=== PATIENT | male | born 1970 | race Caucasian/White ===

== ENCOUNTER → 2020-08-01 | Outpatient (CLI) | payer BC, OTHER | LOC: HEART 5 07-24 14:00 → ECHO 07-26 11:00 → NM 07-26 13:00 → ECHO 08:39 | DX: R07.9 Chest pain, unspecified (principal); I10 Essential (primary) hypertension; R00.2 Palpitations; R06.02 Shortness of breath | CPT/HCPCS: ECHO; 78452; 93017; 93306; A9502 ==